=== PATIENT | male | born 1990 | race Caucasian/White ===

== ENCOUNTER 2023-04-19 16:36 | Emergency (ER) | payer BC, OTHER ==
[~2023-04-19] VITALS: Ht 182.9 cm; Wt 95.3 kg
[2023-04-19 16:46] VITALS: TEMP 98.4
[2023-04-19] MEDS ORDERED: HALOPERIDOL LACTATE INJ 5 MG/ML VIAL ONE (16:58)
[2023-04-19] MEDS ORDERED: PANTOPRAZOLE 40 MG VIAL ONE (16:58)
[2023-04-19] MEDS: PANTOPRAZOLE 40 MG VIAL IV ONE (17:00)
[2023-04-19] MEDS: IV NS 0.9% 1,000 ML BAG IV ONE (17:00)
[2023-04-19] MEDS: HALOPERIDOL LACTATE INJ 5 MG/ML VIAL IM ONE (17:00)
[2023-04-19 17:23] LABS: BASOPHILS % (AUTO) 0.1 % (0.0-2.0); EOSINOPHILS % (AUTO) 0.1 % (0.0-6.0); HEMATOCRIT 51 % (39-51); HEMOGLOBIN 17.1 g/dL (13.5-17.5); LYMPHOCYTES # (AUTO) 1.2 K/uL (0.8-4.8); MEAN CORPUSCULAR HEMOGLOBIN 30 PG (26.0-33.0); MEAN CORPUSCULAR HGB CONC 34 g/dl (31.0-36.0); MEAN CORPUSCULAR VOLUME 89 fL (80-96); MONOCYTES # (AUTO) 0.6 K/uL (0.1-1.30); MONOCYTES % (AUTO) 4.2 % (2.0-12.0); NEUTROPHILS # (AUTO) 11.9 K/uL (1.8-8.9); NEUTROPHILS % (AUTO) 86.6 % (43.0-81.0); PLATELET COUNT (AUTO) 264 K/uL (150-450); RED BLOOD CELL COUNT(AUTO) 5.68 MIL/uL (4.5-6.0); RED CELL DISTRIBUTION WIDTH 13.7 % (11.5-15.0); WHITE BLOOD COUNT (AUTO) 13.8 K/uL (4.3-11.0)
[2023-04-19 17:44] LABS: CALCIUM, SERUM 10.2 mg/dL (8.5-10.1); CREATININE 1.1 mg/dL (0.6-1.3)
[2023-04-19 17:54] LABS: ALBUMIN 4.8 g/dL (3.4-5.0); BILIRUBIN,DIRECT 0.2 mg/dL (0.0-0.2); BILIRUBIN,TOTAL 1.3 mg/dL (0.2-1.0); TOTAL PROTEIN, SERUM 8.4 g/dL (6.4-8.2)
[2023-04-19] MEDS ORDERED: KETOROLAC TROMETHAMINE 15 MG/ML VIAL ONE (18:00)
[2023-04-19] MEDS: KETOROLAC TROMETHAMINE 15 MG/ML VIAL IV ONE (18:05)
[2023-04-19] MEDS ORDERED: ONDA4TAB5 PO (18:08)
[2023-04-19 19:24] LABS: APPEARANCE,URINE CLEAR (CLEAR); BILIRUBIN,URINE 1+ (NEGATIVE); BLOOD, URINE NEGATIVE Ery/uL (NEGATIVE); COLOR,URINE YELLOW (YELLOW); KETONES,URINE 3+ mg/dL (NEGATIVE); LEUKOCYTE ESTERASE ,URINE NEGATIVE (NEGATIVE); NITRITE, URINE NEGATIVE (NEGATIVE); PH,URINE 6.5 (5.0-8.0); PROTEIN,URINE 1+ mg/dl (NEGATIVE); UGLUCOSE NEGATIVE (NEGATIVE)
[2023-04-19 19:36] LABS: ADD URINE CULTURE NO; BACTERIA,URINE 1+ /HPF (None Seen); RBC,URINE 0-2 /HPF (0-2); SQUAMOUS EPITHELIAL CELL,UR Few /HPF (None Seen); WBC,URINE 0-2 /HPF (0-3)
[2023-04-19 20:32] VITALS: BP 125/65; O2SAT 99
== END 2023-04-19 20:00 | disposition home or self-care (01) ==
LOC: ER 16:44
DX: R11.2 Nausea with vomiting, unspecified (principal); Z79.899 Other long term (current) drug therapy
CPT/HCPCS: 99284; 96374; 96361; 96375; 93005; 85025; 80048; 83690; 80076; 81001; 36415; 96372; J1630; J7030; C9113; J1885

== ENCOUNTER 2023-04-22 01:41 | Emergency (ER) | payer BC ==
[~2023-04-22] VITALS: Ht 182.9 cm; Wt 95.3 kg
[~2023-04-22 01:41] MED LIST: ONDA4TAB5 PO
[2023-04-22] MEDS ORDERED: ONDANSETRON HCL/PF 4 MG/2 ML VIAL ONE (04:10)
[2023-04-22] MEDS ORDERED: PANTOPRAZOLE 40 MG VIAL ONE (04:10)
[2023-04-22] MEDS ORDERED: HALOPERIDOL LACTATE INJ 5 MG/ML VIAL ONE (04:10)
[2023-04-22] MEDS ORDERED: IV NS 0.9% 1,000 ML BAG IV ONE (04:30)
[2023-04-22] MEDS ORDERED: HALOPERIDOL LACTATE INJ 5 MG/ML VIAL IM ONE (04:30)
[2023-04-22] MEDS ORDERED: PANTOPRAZOLE 40 MG VIAL IV ONE (04:30)
[2023-04-22] MEDS ORDERED: ONDANSETRON HCL/PF 4 MG/2 ML VIAL IVP ONE (04:30)
[2023-04-22 05:21] VITALS: BP 136/76; TEMP 98.6; O2SAT 98
== END 2023-04-22 05:27 | disposition home or self-care (01) ==
LOC: ER 01:45
DX: R11.2 Nausea with vomiting, unspecified (principal)
CPT/HCPCS: 99284; 96374; 96375; 96372; J1630; J2405; J7030; C9113